=== PATIENT | female | born 1970 | race Caucasian/White ===

== ENCOUNTER 2022-08-29 09:33 | Inpatient (IN) | payer OTHER ==
[~2022-08-29] VITALS: Ht 165.1 cm; Wt 82.3 kg
[2022-08-29 09:52] LABS: BASOPHILS ABSOLUTE AUTO 0.09 K/mm3 (0.00-0.23); BASOPHILS PERCENT AUTO 1 % (0-2); EOSINOPHILS PERCENT AUTO 0 % (0-6); Hemoglobin 9.9 g/dL (11.5-16.0); IMMATURE GRAN ABSOLUTE AUTO 0.03 K/mm3 (0.00-0.10); IMMATURE GRAN PERCENT AUTO 0 % (0-1); LYMPHOCYTES PERCENT AUTO 24 % (21-46); MONOCYTES ABSOLUTE AUTO 0.49 K/mm3 (0.16-1.47); MONOCYTES PERCENT AUTO 5 % (4-13); Mean Corpuscular HGB 30.8 pg (26.0-34.0); Mean Corpuscular Volume 94 fL (80-100); Mean Platelet Volume 9.9 fL (9.1-12.4); NEUTROPHILS ABSOLUTE AUTO 7.15 K/mm3 (1.96-9.15); NEUTROPHILS PERCENT AUTO 70 % (41-73); Platelet Count 224 K/mm3 (150-400); RDW Coefficient Variation 12.8 % (11.7-14.2); RDW Standard Deviation 44.4 fL (35.1-46.3); Red Blood Cell Count 3.21 M/mm3 (3.80-5.20); White Blood Cell Count 10.16 K/mm3 (4.00-11.30)
[2022-08-29 10:13] LABS: Albumin/Globulin Ratio 0.6 (0.8-1.8); Bilirubin, Total 0.2 mg/dL (0.1-1.0); Bun/Creatinine Ratio 12.1 (12.0-20.0); Calcium, Blood 7.9 mg/dL (8.5-10.1); Creatinine, Blood 3.38 mg/dL (0.40-1.00); Globulin, Blood 3.5 g/dL (2.2-4.0); Potassium, Blood 3.6 mmol/L (3.5-5.5); Total Protein, Blood 5.5 g/dL (6.4-8.2)
[2022-08-29 13:01] LABS: Source, Urine Clean Catch
[2022-08-29 13:05] LABS: Appearance, Urine Clear (Clear); Bilirubin, Urine Neg (Neg); Blood, Urine 2+ (Neg); Color, Urine Yellow (P-Yellow); Glucose Qualitative, Urine 1+ (Neg); Ketones, Urine Neg (Neg); Leukocyte Esterase, Urine Neg (Neg); Nitrite, Urine Neg (Neg); Protein, Urine 4+ (Neg); Urobilinogen, Urine NORM (Normal)
[2022-08-29 13:26] LABS: U Opiates Screen DETECTED
[2022-08-29 13:27] LABS: U Amphetamine Screen Not Detected; U Barbituate Screen Not Detected; U Benzodiazapine Screen Not Detected; U Buprenorphine Screen Not Detected; U Cannabinoids Screen Not Detected; U Cocaine Screen Not Detected; U Methadone Screen Not Detected; U Methamphetamine Screen Not Detected; U Oxycodone Screen Not Detected; U Phencyclidine Screen Not Detected; U Propoxyphene Screen Not Detected
[2022-08-29 13:33] LABS: Bacteria Not Seen /hpf; Squamous Epithelial Cells Rare /hpf (Few); White Blood Cells, Urine Not Seen /hpf (0-5)
[2022-08-29] MEDS ORDERED: Norco 10-325 T1 EACH PO (14:20)
--- NOTE | 2022-08-29 18:02 | NUR ---
admit note and shift summary THE PT ARRIVED TO PCU VIA ED STRETCHER APPROX 1400. PT WAS SLID BY 4 STAFF FROM ED STRETCHER TO PCU BED. PT A&OX4. SP02>90% ON 3L NC, BIPAP WHEN NEEDED FOR SOB. PT SOB W/ EXERTION, WORE BIPAP FOR 2 HOURS THIS AFTERNOON. TELEMETRY SHOWS NSR, HR 80'S. BP ELEVATED, MEDICATING PER EMAR. EDEMA NOTED BLE 3+. CASTORENA CATHETER PLACED IN ER, DRAINING CLEAR LIGHT YELLOW URINE TO GRAVITY. NO BM THIS SHIFT. PT STATES MORE THAN "ONE WEEK" SINCE LAST BM. BOWEL TONES NORMAL. PT STATES THIS PROCESS IS NORMAL FOR HER. PT PAINFUL IN LEGS, STATES NEUROPATHY. PT ORIENTED TO ROOM, CALL LIGHT. RESTING IN BED EATING DINNER, CALL LIGHT IN REACH.
--- NOTE | 2022-08-29 20:30 | NUR ---
ASSESSMENT/ASSUMED CARE PT SLEEPING, AWAKENS EASILY TO VERBAL STIMUL. FOLLOW INSTRUCTION AND ANSWERING QUESTIONS APPROP. MOVING SELF AROUND IN BED. C/O BILAT LEG PAIN 01/[address] FOR PAIN MEDS. ELEVATED BP WITH CALL FOR MEDS. LUNGS CLEAR BUT DECREASED ON BIPAP 05/29 FIO2 35%, SPO2 99%. RESP EVEN AND NONLABORED. HEART RATE REGUALR. 3+ LOWER EXT PITTING EDEMA NOTED. BT+ ABD SOFT AND NONTENDER. DENIES N/V. CASTORENA CATH PATENT DRAINING YELLOW URINE. IV TO LEFT AC SALINE LOCKED SITE CLEAR.
[2022-08-29 20:37] LABS: Source, Urine Foley catheter
[2022-08-29 20:43] LABS: Bilirubin, Urine Neg (Neg); Blood, Urine 2+ (Neg); Glucose Qualitative, Urine 1+ (Neg); Ketones, Urine Neg (Neg); Leukocyte Esterase, Urine 1+ (Neg); Nitrite, Urine Neg (Neg); Protein, Urine 3+ (Neg); Urobilinogen, Urine NORM (Normal); pH, Urine 6.5 (5.0-8.0)
[2022-08-29 21:06] LABS: Appearance, Urine Clear (Clear); Color, Urine Pale Yellow (P-Yellow)
[2022-08-29 21:08] LABS: Bacteria Few /hpf; Hyaline Casts 0-2 /lpf (0-2); Red Blood Cells, Urine 0-2 /hpf (0-2); Squamous Epithelial Cells Rare /hpf (Few)
--- NOTE | 2022-08-29 21:22 | NUR ---
PAIN/HTN PT MED WITH HYDROCODONE FOR BILAT LOWER EXT PAIN AND HYDRALAZINE FOR HTN.
[2022-08-30 03:53] LABS: Hematocrit 27.9 % (33.0-51.0); Hemoglobin 9.3 g/dL (11.5-16.0)
[2022-08-30 04:22] LABS: Albumin, Blood 1.9 g/dL (3.4-5.0); Albumin/Globulin Ratio 0.6 (0.8-1.8); Bilirubin, Total 0.3 mg/dL (0.1-1.0); Bun/Creatinine Ratio 12.6 (12.0-20.0); Creatinine, Blood 3.5 mg/dL (0.40-1.00); Globulin, Blood 3.1 g/dL (2.2-4.0); Magnesium, Blood 1.9 mg/dL (1.6-2.4); Potassium, Blood 3.8 mmol/L (3.5-5.5)
--- NOTE | 2022-08-30 05:59 | NUR ---
SHIFT SUMMARY PT RESTING QUIETLY WITH BIPAP ON. SETTINGS /6 FIO2 35%. ORAL CARE Q4HR. PT TAKING BREAKS FROM BIPAP FOR ORAL CARE AND ON 3 LITERS O2 VIA NC. REPORTS IMPROVED BREATHING. PT MED WITH NORCO TWICE FOR C/O LOWER EXT PAIN WITH GOOD RESULTS. PT HAVING HTN MED WITH HYRALALZINE WITH LITTLE IMPROVEMENT. STARTED ON LISINOPRIL. SEE VS. NO ACUTE CHANGE. REPORT TO COMING NURSE
[2022-08-30 11:43] LABS: CHOL/HDL RATIO 6.8; Cholesterol 189 mg/dL (50-200); HDL Cholesterol 28 mg/dL (>39); LDL/HDL RATIO 4.3; Low Density Lipoprotein Chol 120 mg/dL (0-110); Triglycerides 203 mg/dL (30-160); Very Low Density Lipoprot Chol 40 mg/dL (6-32)
--- NOTE | 2022-08-30 18:11 | NUR ---
SHIFT SUMMARY NO ACUTE CHANGES THIS SHIFT. PT A&OX4. SP02>90% ON 4L NC, TITRATED TO 2L. BIPAP WHILE NAPPING, 05/29, 35%. TELEMETRY SHOWS SINUS, HR MOSTLY 80'S. HTN NOTED, MEDICATED PER EMAR. LASIX GIVEN PER EMAR. CASTORENA CATHETER DRAINING TO GRAVITY. UP TO BS TO HAVE ONE BM THIS SHIFT. C/O OF LEG/FOOT PAIN. MEDICATED PER EMAR. DR. NOLAND IN ROOM TO ASSESS AND SPEAK WITH PT THIS AFTERNOON. PT RESTING IN BED WATCHING CARTOONS. CALL LIGHT IN REACH.
--- NOTE | 2022-08-31 05:41 | NUR ---
SHIFT SUMMARY PT AXO. IN SR. ROTATING BETWEEN BIPAP AND NC, PT HAD EPISODE OF DYSPNEA/ANXIETY WHERE HER SATS WERE >95% AND LUNG SOUNDS CLEAR BUT PT COMPLAINING THAT SHE COULDN'T CATCH HER BREATH AND WAS HAVIG TROUBLE BREATHING, POST 0.5MG PO ATIVAN ADMINISRATION PT HAS NOT COMPLAINED OF THIS AGAIN. HAS TOLERATED BIPAP MASK WELL SINCE. CURRENTLY IS SITTING UP IN BED WITH NC @3L WITH SPO2 92%. CASTORENA REMAINS PATENT, DIURESING WELL. CHRONIC PAIN BEING MANAGED PER EMAR, MOSTLY NEUROPATHIC TO FEET/LEGS. OTHERWISE, PT HAS SLEPT OFF AND ON ALONG [facility] DOING CRAFTS IN ROOM AND WATCHING TV. SBA, USES CALL LIGHT APPROPRIATELY.
[2022-08-31 07:17] LABS: Hematocrit 27.5 % (33.0-51.0); Hemoglobin 8.9 g/dL (11.5-16.0); Mean Corpuscular HGB 30.8 pg (26.0-34.0); Mean Corpuscular HGB Conc 32.4 g/dL (31.5-36.5); Mean Corpuscular Volume 95 fL (80-100); Mean Platelet Volume 10.3 fL (9.1-12.4); Platelet Count 219 K/mm3 (150-400); RDW Coefficient Variation 12.9 % (11.7-14.2); RDW Standard Deviation 45.5 fL (35.1-46.3); Red Blood Cell Count 2.89 M/mm3 (3.80-5.20); White Blood Cell Count 10.32 K/mm3 (4.00-11.30)
[2022-08-31 07:37] LABS: Albumin, Blood 2.1 g/dL (3.4-5.0); Albumin/Globulin Ratio 0.6 (0.8-1.8); Bilirubin, Total 0.2 mg/dL (0.1-1.0); Bun/Creatinine Ratio 12.8 (12.0-20.0); Calcium, Blood 7.9 mg/dL (8.5-10.1); Creatinine, Blood 3.67 mg/dL (0.40-1.00); Globulin, Blood 3.4 g/dL (2.2-4.0); Potassium, Blood 3.8 mmol/L (3.5-5.5); Total Protein, Blood 5.5 g/dL (6.4-8.2)
--- NOTE | 2022-08-31 18:00 | NUR ---
SHIFT SUMMARY NO ACUTE CHANGES THIS SHIFT. PT A&OX4. SP02>90% ON 3L NC OR BIPAP 05/29 35%. PT NOTIFIES STAFF WHEN SHE FEELS SOB/WANTS TO GO ON BIPAP. TELEMETRY SHOWS NSR, HR 70'S. HTN NOTED, MEDICATING PER EMAR. CASTORENA CATHETER DRAINING CLEAR YELLOW URINE TO GRAVITY. NO BM THIS SHIFT. UP IN RECLINER PART OF DAY DOING CRAFTS, LEGS ELEVATED. CALL LIGHT IN REACH.
--- NOTE | 2022-08-31 22:44 | NUR ---
ASSUMPTION OF CARE 0 THIS RN ASSUMED CARE OF PT AT 1900. PT ASLEEP IN BED, BUT EASILY AWAKENED. PT APPEARS PALE AND FATIGUE. PT STATES SHE IS "TIRED". VSS. PT ON CPAP, SPO2 95%. REPORTS FEELS "HARD TO BREATH", REPORTS FEELING LIKE SHE IS TAKING "SMALL BREATHS, LIKE HYPERVENTILATING". SPO2 WNL, RR WNL, AND WOB WNL. PT ENCOURAGED TO TAKE SLOW DEEP BREATHING, PT RESPONDED WELL. PT REPORTS 7/10 PAIN IN FEET AND LEGS. WILL ADMINISTER PAIN MEDICATION PER EMAR. PT ENCOURAGED TO REPOSITION AND A WARM BLANKET PROVIDED IN THE MEANTIME. PT A&0 X4, INTERACTING AND RESPONDING APPROPRIATELY. PT DENIES ANY NEEDS OR OTHER CONCERNS AT THIS TIME. CASTORENA CATHETER IN PLACE AND DRAINING PALE, YELLOW URINE TO GRAVITY.
--- NOTE | 2022-09-01 00:39 | NUR ---
UPDATE PT RESTING WELL IN ROOM. 0000 VS STABLE. NO ACUTE CHANGES. PT WANTED BREAK FROM CPAP, CURRENTLY ON 4 L NC SPO2 94 - 96%. PT EXPRESSES NO NEEDS OR CONCERNS AT THIS TIME. CALL LIGHT IN REACH AND BED IN LOWEST POSITION. PT REPORTS PAIN LEVEL HAS DECREASED FOR NOW AND IS TOLERABLE
--- NOTE | 2022-09-01 01:15 | NUR ---
UPDATE PT AWAKE IN ROOM, PT SPO2 DECREASED TO 80% WHILE ON NC. PT A&O, DENIES ANY SX. PT SWITCHED BACK TO CPAP, SPO2 INCREASED AND MAINTAINED FOR A LITTLE, THEN SPO2 DROPPED 84-88%. RT NOTIFIED, RT IN TO SEE PT AND INCREASED BLEED IN TO 7L. SPO2 NOW MAINTAINING 93% - 98%. CALL LIGHT IN REACH.
--- NOTE | 2022-09-01 02:17 | NUR ---
UPDATE; ROUNDING PT ON CPAP, SPO2 MAINTAINING 94 - 98%. PT NOW ASLEEP IN ROOM AND APPEARS COMFORTABLE. CALL LIGHT IN REACH AND BED IN LOWEST POSITION. PT REPOSITIONS INDEPENDENTLY.
[2022-09-01 04:07] LABS: BASOPHILS ABSOLUTE AUTO 0.06 K/mm3 (0.00-0.23); BASOPHILS PERCENT AUTO 1 % (0-2); EOSINOPHILS PERCENT AUTO 0 % (0-6); Hematocrit 27.1 % (33.0-51.0); Hemoglobin 8.7 g/dL (11.5-16.0); IMMATURE GRAN ABSOLUTE AUTO 0.04 K/mm3 (0.00-0.10); IMMATURE GRAN PERCENT AUTO 0 % (0-1); LYMPHOCYTES ABSOLUTE AUTO 2.06 K/mm3 (0.84-5.20); LYMPHOCYTES PERCENT AUTO 21 % (21-46); MONOCYTES PERCENT AUTO 5 % (4-13); Mean Corpuscular HGB 31.3 pg (26.0-34.0); Mean Corpuscular HGB Conc 32.1 g/dL (31.5-36.5); Mean Corpuscular Volume 98 fL (80-100); Mean Platelet Volume 10.7 fL (9.1-12.4); NEUTROPHILS ABSOLUTE AUTO 7.18 K/mm3 (1.96-9.15); NEUTROPHILS PERCENT AUTO 73 % (41-73); Platelet Count 191 K/mm3 (150-400); RDW Standard Deviation 46.3 fL (35.1-46.3); Red Blood Cell Count 2.78 M/mm3 (3.80-5.20); White Blood Cell Count 9.84 K/mm3 (4.00-11.30)
[2022-09-01 04:32] LABS: Albumin/Globulin Ratio 0.6 (0.8-1.8); Bilirubin, Total 0.3 mg/dL (0.1-1.0); Bun/Creatinine Ratio 13.8 (12.0-20.0); Calcium, Blood 8.1 mg/dL (8.5-10.1); Creatinine, Blood 3.85 mg/dL (0.40-1.00); Globulin, Blood 3.3 g/dL (2.2-4.0); Potassium, Blood 4.3 mmol/L (3.5-5.5); Total Protein, Blood 5.3 g/dL (6.4-8.2)
--- NOTE | 2022-09-01 06:31 | NUR ---
SHIFT SUMMARY PT REMAINS A&0 X4. PT RESTED WELL ON AND OFF THROUGHOUT SHIFT. VSS. PT HAD A FEW EPISODES OF SPO2 DECREASING TO 85 - 88%; PT O2 INCREASED. PT RECOVERED WELL. PT ON CPAP MOST OF THE NIGHT WITH MINIMAL BREAKS WHICH SHE WAS SWITCHED TO NC. PT EDUCATED ON DIET SHE CONTINUED TO ASK FOR SNACKS AND HIGH SALT FOODS. PT VERBALIZED UNDERSTANDING BUT AT TIMES STILL ASKING. PT MEDICATED X2 FOR PAIN. NO OTHER CHANGES. CALL LIGHT IN REACH AND BED IN LOWEST POSITION. CASTORENA IN PLACE AND DRAINING TO GRAVITY; GOOD OUTPUT THIS SHIFT.
--- NOTE | 2022-09-01 18:29 | NUR ---
SHIFT SUMMARY PT IS ALERT AND ORIENTED X 4, SPO2 MAINTAINED >92% VIA 4-5L NC, PT REPORTED FEELING SOB. HR AND BP STABLE. PT HAS DENIED FEELINGS OF CHEST PAIN/PRESSURE, SHE HAS DENIED FEELINGS OF NAUSEA. NO COUGH NOTED. PAIN REPORTED IN BILATERAL LOWER EXTREMETIES. LEGS ELEVATED TO ALLEVIATE PAIN, ALSO SEE EMAR FOR PAIN MANAGEMENT. CASTORENA CATHETER IN IN PLACE AND DRAINING TO GRAVITY YELLOW OUTPUT. PT HAS BEEN IN RECLINER CHAIR SINCE BREAKFAST. PT NOW APPEARS TO BE WATCHING TV, CALL LIGHT IN REACH, WILL CONTINUE TO MONITOR UNTIL REPORT GIVEN.
[2022-09-02 04:20] LABS: Hematocrit 27.6 % (33.0-51.0); Hemoglobin 8.8 g/dL (11.5-16.0); Mean Corpuscular HGB 31.3 pg (26.0-34.0); Mean Corpuscular HGB Conc 31.9 g/dL (31.5-36.5); Mean Corpuscular Volume 98 fL (80-100); Platelet Count 207 K/mm3 (150-400); RDW Coefficient Variation 13.2 % (11.7-14.2); Red Blood Cell Count 2.81 M/mm3 (3.80-5.20); White Blood Cell Count 10.54 K/mm3 (4.00-11.30)
[2022-09-02 04:58] LABS: Albumin, Blood 1.9 g/dL (3.4-5.0); Albumin/Globulin Ratio 0.5 (0.8-1.8); Bilirubin, Total 0.3 mg/dL (0.1-1.0); Bun/Creatinine Ratio 15.2 (12.0-20.0); Creatinine, Blood 3.87 mg/dL (0.40-1.00); Globulin, Blood 3.6 g/dL (2.2-4.0); Potassium, Blood 4.3 mmol/L (3.5-5.5); Total Protein, Blood 5.5 g/dL (6.4-8.2)
--- NOTE | 2022-09-02 06:53 | NUR ---
SHIFT SUMMARY PT REMAINS A&O X4. VSS, ALTHOUGH PT HAD ONE ELEVATED SBP ABOVE 170. HYDRALIZINE ADMINISTERED PER EMAR. THROUGHOUT SHIFT PT RESTED ON AND OFF. PT WAS DOING WELL, ALTHOUGH HAD A FEW EPISODES OF SPO2 DECREASING TO 84 - 86% AND NOT RECOVERING WELL. PT ON BIPAP, RT NOTIFIED. RT IN TO ADJUST SETTINGS AND INCREASE O2. PT TOOK A WHILE TO RECOVER, PT BECAME RESTLESS AND AGITATED, AND BEGAN PULLING AT MASK AND "WANTING IT OFF". PT ABLE TO BE REDIRECTED, BUT THEN AGAIN WAS RESTLESS. PT SPO2 DROPPED TO 82%, O2 INCREASED TO 12 - 15; PT SPO2 88 - 89%. RT IN TO ASSESS. PT APPEARS TIRED AND PALE/BENDER IN COLOR BUT WAS RESPONDING AND INTERACTING WITH STAFF. PT STILL ANSWERING QUESTIONS. STATES "FEELS HARD TO BREATH". PT SPO2 INCREASED TO 90 - 92 ON 15 L. PT GIVEN TIME TO RECOVER, HOWEVER TOOK A LONG TIME AND PT NEEDED "TO SIT UP AT EOB". ONCE RECOVERED O2 DECREASED TO 12 L AND PT REMAINS ON THIS; 90 - 93%. BREATHING TX ADMINSTERED D/T COARSE/WHEEZY LS. THIS DID NOT HELP. THIS RN NOTIFIED PROVIDER. ONE TIME DOSE OF 0.5 MG OF ATIVAN TO HELP CALM AGITAION ORDERS AND REPEAT BNP. PT NOW UP IN RECLINER, SEEMS TO BE A LITTLE MORE CALM BUT STILL NOT TOLERATING MASK WELL. EDUCATION PROVIDED BUT VERBALIZED UNDERSTANDING. WILL UPDATE ONCOMING RN. CALL LIGHT IN REACH
--- NOTE | 2022-09-02 17:54 | NUR ---
SHIFT SUMMARY; ASSUMED CARE AT 0700. A/OX3. BIPAP DURING MOST OF SHIFT. BREAKS FOR MEALS AND A FEW HOURS IN AFTERNOON. 10L VIA HIGH FLOW CANNULA WHEN OFF BIPAP. SITS IN RECLINER CHAIR MOST OF SHIFT. ASSISTS MINIMALLY WITH REPOSITIONING. CASTORENA IN PLACE DRAINING CLEAR YELLOW URINE. ORAL CARE TODAY, EATS MEALS WITHOUT DIFFICULTY. 1500ML FLUID RESTRICTION ORDERED TODAY. NO ACUTE CHANGES DURING SHIFT, VSS, WILL CONTINUE TO MONITOR AND TREAT UNTIL CHANGE OF SHIFT.
--- NOTE | 2022-09-03 00:55 | NUR ---
ROUNDING 0000 VSS. BP IMPROVED FROM PREVIOUS; SBP 164. PT UP WATCHING TV IN ROOM. PT ON NC AT 10 L AT THIS TIME PER PT REQUEST TO HAVE A BREAK FROM BIPAP. SPO2 MAINTAINING 91 - 93%. SOB NOTED WITH EXERTION. PT REPORT FEELING ANXIOUS D/T "MASK AND OTHER THINGS". PT ALSO REPORTS 7/10 PAIN IN LEGS AND FEET. MEDICATION FOR PAIN AND ANXIETY ADMINISTERED PER EMAR. PT REPOSITIONED AT THIS TIME. PT REQUESTING SNACKS AND DRINKS. PT EDUCATED ON FLUID RESTRICTION WELL DIET. PT VERBALIZING UNDERSTANDING BUT "DOES NOT LIKE IT". PT COMPLAINS OF DIET AND RESTRICTIONS. EDUCATION PROVIDED ON IMPORTANCE OF BOTH, PT NODS HEAD "YES". SUGAR FREE PUDDING OFFERED AND PT ACCEPTED. CALL LIGHT IN REACH AND BED IN LOWEST POSITION.
--- NOTE | 2022-09-03 04:56 | NUR ---
ROUNDING 0400 PT SLEEPING. VSS; ALTHOUGH SBP STILL ELEVATED AT 171. PT ON 10 L HI FLOW NC, SPO2 90 - 93%. PT REPOSITIONED AT THIS TIME AND BOOSTED IN BED. PT STATES SHE IS OVERALL "FEELING CRUDDY". REPORTS FEELS FATIGUED AND TROUBLE BREATHING. PT DID NOT WANT TO GO BACK ON BIPAP AT THIS TIME. PT REQUESTING FOOD AND A SNACK, BUT DID NOT WANT SUGAR FREE OR LOW SODIUM SNACKS OFFERED. STATES DOES NOT LIKE THE DIET AND IS "HUNGRY". THIS RN REMINDED PT BREAKFAST WOULD BE SOON. PT AGREED AND WENT BACK TO SLEEP. CASTORENA DRAINING TO GRAVITY; 800 MLS OF URINE OUT THIS SHIFT. CALL LIGHT IN REACH AND BED IN LOWEST POSITION
--- NOTE | 2022-09-03 06:14 | NUR ---
SHIFT SUMMARY PT REMAINS A&0 X4. NO ACUTE CHANGES FROM ASSUMPTION OF CARE AND ROUNDING NOTES. PT ON AND OFF BIPAP THROUGHOUT NIGHT, WHEN OFF BIPAP PT ON 10 L VIA HI FLOW NC. SPO2 MAINTAINED 90 - 94% THROUGHOUT SHIFT. PT DOES STATE "FEELS HARD TO BREATH AT TIMES". PT SOUNDS COARSE AND MILD WHEEZES BUT IMPROVED FROM PREVIOUS SHIFT. PT SBP 170'S; HYDRALIZINE PER EMAR ADMINSTERED X2. PT RECEIVED FULL BED BATH LAST NIGHT. PT ENCOURAGED TO PARTICIPATE AND PERFORM SELF-CARE. EDUCATION PROVIDED. PT PARTICIPATED AND DID WELL WITH ENCOURAGEMENT. PT NOW RESTING IN ROOM. CALL LIGHT IN REACH. WILL UPDATE ONCOMING RN
[2022-09-03 06:19] LABS: Hemoglobin 8.8 g/dL (11.5-16.0); Mean Corpuscular HGB 31.2 pg (26.0-34.0); Mean Corpuscular HGB Conc 32.6 g/dL (31.5-36.5); Mean Corpuscular Volume 96 fL (80-100); Mean Platelet Volume 10.7 fL (9.1-12.4); Platelet Count 231 K/mm3 (150-400); RDW Coefficient Variation 13.2 % (11.7-14.2); RDW Standard Deviation 45.9 fL (35.1-46.3); Red Blood Cell Count 2.82 M/mm3 (3.80-5.20); White Blood Cell Count 8.93 K/mm3 (4.00-11.30)
[2022-09-03 06:40] LABS: Albumin, Blood 1.8 g/dL (3.4-5.0); Anion Gap 4 mmol/L (6-16); Blood Urea Nitrogen 69 mg/dL (8-24); Bun/Creatinine Ratio 17.3 (12.0-20.0); CO2, Blood 27 mmol/L (21-32); Calcium, Blood 8.3 mg/dL (8.5-10.1); Chloride, Blood 108 mmol/L (98-108); Creatinine, Blood 3.98 mg/dL (0.40-1.00); Glomerular Filtration Rate 13 (60-); Glucose, Blood 183 mg/dL (70-99); Magnesium, Blood 2.2 mg/dL (1.6-2.4); Phosphorus, Blood 5.4 mg/dL (2.5-4.9); Potassium, Blood 4.3 mmol/L (3.5-5.5); Sodium, Blood 139 mmol/L (136-145)
--- NOTE | 2022-09-03 16:55 | NUR ---
Initial palliative care consult: Dorothy is a 52 year old with a history of DMT2 and HTN. She has not been receiving any local medical care for some time. She is sitting with the HOB elevated during the conversation. She is able to speak in short sentences but she does get SOB easily. Dorothy reports that she is overwhelmed by "all the things wrong." She reports that she has problems with her heart and lungs. She has an incision on her abdomen which appears to have healed (she did not elaborate on the type of surgery she had). She also reports that several of her toes were removed in the past. Spent most of the visit allowing her to talk about her feelings about her illness and asking her what the doctors have told her and what she has learned about caring for herself. She was able to list off that she needs to change her diet (less sugar, less salt) exercise some and limit her fluid intake. We also discussed weighing daily as a way to monitor her fluid and hopefully preventing repeat CHF exacerbations. Gentle DM education also given. She reports that she thinks she might have to go home with oxygen. Provided emotional support as she gets easily overwhelmed and has been receiving a lot of information re: her diagnoses. Spent time talking about what she enjoys. She enjoys beading and showed me the hat she is currently working on. She reports that she lives with her friend, Jayde, and Jayde's . She states that she lived with her dad until he and she was no longer to afford the rent so she moved in with aJyde. She reports that her mother is planning to move here from [place] at the end of September. They plan to buy a house together and help take care of each other. She confirms her limited code status. PC to continue to follow for education, symptom management and emotional support.
--- NOTE | 2022-09-03 17:08 | NUR ---
SHIFT SUMMARY NO ACUTE CHANGES THIS SHIFT. PT A&OX4. IN [employer], RECEIVED VISIT FROM SISTER. SP02>90% ON 8L HHF CURRENTLY. ABLE TO TITRATE FROM 10L AT START OF SHIFT. BIPAP WHILE SLEEPING. TELEMETRY SHOWED NSR, HR MOSTLY 70'S. CASTORENA CATHETER DRAINING YELLOW URINE TO GRAVITY. ADHERED STRICTLY TO FLUID RESTRICTION. NO BM THIS SHIFT. RESTING IN BED, MOSTLY WORKING ON CRAFTS TODAY. CALL LIGHT IN REACH.
--- NOTE | 2022-09-03 22:15 | NUR ---
ASSUMPTION OF CARE THIS RN ASSUMED CARE OF PT AT 1900. REPORT FROM YANELY RENTERIA. PT AWAKE IN ROOM, WATCHING TV. A&0 X4. PT STATES "I AM OK, I AM HERE". PT APPEARS FATIGUED AND PALE. VSS. PT ON 10 L VIA HHF NC, SPO2 94%. PT REPORTS SOB AND FEELS "CONGESTED AND HAS GUNK IN HER BRONCHIAL PASSAGES". STATES SHE IS COUGHING BUT UNABLE TO COUGH UP SPUTUM. LUNG SOUNDS STILL COARSE. PT DENIES CP, PRESSURE, N/V, DIZZINESS, LIGHTHEADNESS OR HEADACHES. EDEMA CONTINUES IN BLE AND BUE. CASTORENA CATHETER IN PLACE AND DRAINING TO GRAVITY. PT DENIES BM FOR "SEVERAL DAYS". STATES AT HOME SHE HAS A BM "MAYBE ONCE OR TWICE A WEEK". DENIES TENDERNESS OR DISCOMFORT IN ABD. PT FOUND WITH A ZIPLOC BAG OF SALT AND PEPPER WELL A ROAST BEEF SANDWICH FROM HER SISTER TODAY. PER DAY SHIFT PT'S SISTER ALSO BROUGHT IN TWO LARGE SIZE MOUNTAIN DEW BOTTLES. THIS RN PROVIDED EDUCATION ON DIET AND RESTRICTIONS WELL REASONING BEHIND DIET. PT STATES "I KNOW BUT THE FOOD IS BLAND AND DISGUSTING". PT VERBALIZED UNDERSTANDING OF DIET AND RESTRICTIONS WELL EDUCATION. CALL LIGHT IN REACH AND BED IN LOWEST POSITION.
--- NOTE | 2022-09-04 02:55 | NUR ---
UPDATE; ROUNDING 0000 PT RESTING ON AND OFF IN ROOM. VSS. PT ON BIPAP, SPO2 92 - 96%. PT REPOSITIONED AT THIS TIME. PT REQUESTING SNACKS, THIS RN EDUCATED ABOUT DIET AND RESTRICTIONS. PT AGREED AND VERBALIZED UNDERSTANDING. PT DOES NOT EXPRESS ANY OTHER NEEDS OR CONCERNS AT THIS TIME. CALL LIGHT IN REACH
--- NOTE | 2022-09-04 04:54 | NUR ---
UPDATE; ROUNDING PT AWAKE IN ROOM WATCHING TV, WITH BIPAP OFF. PT STATES SHE WAS "DREAMING AND DIDNT NEED IT". EDUCATION PROVIDED AND PT VERBALIZED UNDERSTANDING. THIS RN WAS GOING TO PLACE MASK BACK ON PT AND SHE DECLINED STATING "IT IS STICKING TO MY FACE". THIS RN PLACED NC AT 8 L ON PT. 0400 VSS. PT REPORTS 8 - 9/10 PAIN IN HER LEGS AND FEET. PT REQUESTED PAIN MEDICATION. THIS RN ADMINISTERED MEDICATION PER EMAR. PT DENIES ANY OTHER NEEDS AT THIS TIME. PT REPOSITIONED AT THIS TIME. CALL LIGHT IN REACH.
--- NOTE | 2022-09-04 06:23 | NUR ---
SHIFT SUMMARY PT REMAINS A&O X4. NO ACUTE CHANGES THROUGHOUT NIGHT. VSS. PT WORE BIPAP MOST OF THE NIGHT, SPO2 92 - 94%. WHEN ON NC PT ON 8 - 10 L. CURRENTLY ON 8 L AND SPO2 >92%. PT CONTINUES TO COMPLAIN ABOUT "COUGH AND PHELGM". CASTORENA IN PLACE AND DRAINING; 650 OUT THIS SHIFT. CALL LIGHT IN REACH AND BED IN LOW POSITION. WILL UPDATE ONCOMING RN. PT RECEIVED A LOT OF EDUCATION ON DIET AND RESTRICTIONS, SEE OTHER NURSING NOTES. PT VERBALIZES UNDERSTANDING BUT CONTINUES TO ASK FOR FOOD/DRINKS OUTSIDE OF RESTRICTIONS WELL EATING/DRINKING HER OWN FOODS AND DRINKS. THIS RN CONTINUED TO REINFORCE EDUCATION AND IMPORTANCE OF DIET TO PT
[2022-09-04 07:11] LABS: BASOPHILS ABSOLUTE AUTO 0.05 K/mm3 (0.00-0.23); BASOPHILS PERCENT AUTO 1 % (0-2); EOSINOPHILS PERCENT AUTO 0 % (0-6); Hematocrit 26.5 % (33.0-51.0); Hemoglobin 8.4 g/dL (11.5-16.0); IMMATURE GRAN ABSOLUTE AUTO 0.04 K/mm3 (0.00-0.10); IMMATURE GRAN PERCENT AUTO 0 % (0-1); LYMPHOCYTES ABSOLUTE AUTO 1.98 K/mm3 (0.84-5.20); LYMPHOCYTES PERCENT AUTO 21 % (21-46); MONOCYTES ABSOLUTE AUTO 0.71 K/mm3 (0.16-1.47); MONOCYTES PERCENT AUTO 8 % (4-13); Mean Corpuscular HGB 30.9 pg (26.0-34.0); Mean Corpuscular HGB Conc 31.7 g/dL (31.5-36.5); Mean Corpuscular Volume 97 fL (80-100); Mean Platelet Volume 10.6 fL (9.1-12.4); NEUTROPHILS ABSOLUTE AUTO 6.55 K/mm3 (1.96-9.15); NEUTROPHILS PERCENT AUTO 70 % (41-73); Platelet Count 232 K/mm3 (150-400); RDW Coefficient Variation 13.2 % (11.7-14.2); RDW Standard Deviation 46.5 fL (35.1-46.3); Red Blood Cell Count 2.72 M/mm3 (3.80-5.20); White Blood Cell Count 9.33 K/mm3 (4.00-11.30)
[2022-09-04 07:30] LABS: Bun/Creatinine Ratio 17.2 (12.0-20.0); Calcium, Blood 8.1 mg/dL (8.5-10.1); Creatinine, Blood 3.95 mg/dL (0.40-1.00); Potassium, Blood 4.3 mmol/L (3.5-5.5)
[2022-09-05 03:49] LABS: BASOPHILS ABSOLUTE AUTO 0.07 K/mm3 (0.00-0.23); BASOPHILS PERCENT AUTO 1 % (0-2); EOSINOPHILS PERCENT AUTO 0 % (0-6); Hematocrit 24.6 % (33.0-51.0); Hemoglobin 7.8 g/dL (11.5-16.0); IMMATURE GRAN ABSOLUTE AUTO 0.05 K/mm3 (0.00-0.10); IMMATURE GRAN PERCENT AUTO 1 % (0-1); LYMPHOCYTES ABSOLUTE AUTO 1.74 K/mm3 (0.84-5.20); LYMPHOCYTES PERCENT AUTO 16 % (21-46); MONOCYTES ABSOLUTE AUTO 0.72 K/mm3 (0.16-1.47); MONOCYTES PERCENT AUTO 7 % (4-13); Mean Corpuscular HGB 30.8 pg (26.0-34.0); Mean Corpuscular HGB Conc 31.7 g/dL (31.5-36.5); Mean Corpuscular Volume 97 fL (80-100); Mean Platelet Volume 10.6 fL (9.1-12.4); NEUTROPHILS ABSOLUTE AUTO 8.18 K/mm3 (1.96-9.15); NEUTROPHILS PERCENT AUTO 76 % (41-73); Platelet Count 240 K/mm3 (150-400); RDW Coefficient Variation 12.9 % (11.7-14.2); RDW Standard Deviation 45.8 fL (35.1-46.3); Red Blood Cell Count 2.53 M/mm3 (3.80-5.20); White Blood Cell Count 10.76 K/mm3 (4.00-11.30)
[2022-09-05 04:12] LABS: Bun/Creatinine Ratio 16.5 (12.0-20.0); Calcium, Blood 8.3 mg/dL (8.5-10.1); Creatinine, Blood 4.23 mg/dL (0.40-1.00); Potassium, Blood 4.6 mmol/L (3.5-5.5)
--- NOTE | 2022-09-05 08:35 | NUR ---
Met with Dorothy briefly this morning. She reports she is "tired of coughing." She c/o dry, non productive cough and SOB at rest. She reports her edema is decreasing. Reviewed diet restrictions and lifestyle modifications. Visit cut short due to staff needing to get Dorothy [facility] to continue to follow for disease process education and symptom management advanced care planning prn.
--- NOTE | 2022-09-05 18:51 | NUR ---
Shift Summary Pt alert, orineted x3; ambivalent with care. Pt resting in bed for majority of shift, appears to be sleeping intermittently. Pt reports pain to ble, medicated per orders. Pt sob with minimal activity, spo2 >90% on 10l o2 via nc this am, titrated during shift to 5l o2 via nc. Tele sinus 60-70's, bp elevated but stable and trending down this evening. Haro in place and draining. Pt up in chair several times during shift. CBG >350 this am, notified DR, continue with current orders, trending down t/o shift. Other vss. No other acute changes noted. Pt educated this am on dietary choices and lifestyle changes. Pt requesting the mountain dew in room, re-educated pt on blood sugars and sodium content. This afternoon the pt friend devyn in a fast food cheese burger, salt and vinegar chips, salt and pepper shakers and diet mountain dew. Friend was asked to take home the chips, salt and pepper shaker, and the rest of the snack she had brought in, both pt and friend educated on dietary reccomendations and low sodium, ada, and renal diets. This rn left room and returned approx 15 minutes later with patient drink the mountain dew, eating burger and chips, reeducated pt and family, requesting the family to remove items. Comprimised with patient to give 1 small cup of diet mountain dew during shift. Later this rn found salt shaker barried in bed with patient, removed from patient reach.
[2022-09-06 04:31] LABS: BASOPHILS ABSOLUTE AUTO 0.06 K/mm3 (0.00-0.23); BASOPHILS PERCENT AUTO 1 % (0-2); EOSINOPHILS PERCENT AUTO 0 % (0-6); Hematocrit 26.1 % (33.0-51.0); Hemoglobin 8.2 g/dL (11.5-16.0); IMMATURE GRAN ABSOLUTE AUTO 0.04 K/mm3 (0.00-0.10); IMMATURE GRAN PERCENT AUTO 0 % (0-1); LYMPHOCYTES ABSOLUTE AUTO 1.27 K/mm3 (0.84-5.20); LYMPHOCYTES PERCENT AUTO 12 % (21-46); MONOCYTES ABSOLUTE AUTO 0.56 K/mm3 (0.16-1.47); MONOCYTES PERCENT AUTO 5 % (4-13); Mean Corpuscular HGB 30.5 pg (26.0-34.0); Mean Corpuscular HGB Conc 31.4 g/dL (31.5-36.5); Mean Corpuscular Volume 97 fL (80-100); Mean Platelet Volume 10.6 fL (9.1-12.4); NEUTROPHILS ABSOLUTE AUTO 8.52 K/mm3 (1.96-9.15); NEUTROPHILS PERCENT AUTO 81 % (41-73); Platelet Count 247 K/mm3 (150-400); RDW Coefficient Variation 12.8 % (11.7-14.2); RDW Standard Deviation 45.2 fL (35.1-46.3); Red Blood Cell Count 2.69 M/mm3 (3.80-5.20); White Blood Cell Count 10.45 K/mm3 (4.00-11.30)
[2022-09-06 04:50] LABS: Calcium, Blood 8.3 mg/dL (8.5-10.1); Creatinine, Blood 4.21 mg/dL (0.40-1.00); Potassium, Blood 4.9 mmol/L (3.5-5.5)
--- NOTE | 2022-09-06 06:11 | NUR ---
SHIFT SUMMARY ASSUMED CARE OF PATHOLOGY SPECIALIST T 190. PT IS A/OX4 BUT HAD TIMES OF CONFUSION. PT AWOKE AROUND 0400 AND ATTEMPTING TO LEAVE BED WITHOUT ASSISTANCE BECAUSE SHE WAS GOING TO MAKE BREAKFAST. PT EDUCATED ABOUT BLOOD SUGAR AND HOW IT WAS VERY HIGH YESTERDAY AND SHE COULD NOT HAVE ANY SNACKS. PT STATED "SCREW MY BLOOD SUGAR, I WILL OF OTHER THINGS TOO". HEART SOUNDS REGULAR. LUNG SOUNDS HAVE WHEEZE ON L SIDE AND CRACKELS AT BASES. PT WAS ON 5L NC UNTIL ABOUT 0200 WHEN SHE WAS IN A DEEP SLEEP ON NC. PT REFUSED BIPAP T/O THE NIGHT. PT ABLE TO TOLERATE LOWER LITER FLOW WHILE AWAKE. FLOEY DRAINING. PT REMAINED IN BED T/O THE NIGHT. PT HAS GENERALIZED WEAKNESS. PT C/O PAIN IN LEGS, MEDICATED PER EMAR.
--- NOTE | 2022-09-06 09:59 | NUR ---
Spoke with Primary RN María and discussed case. Dr Rosario had converation with Pt and it appears Pt would like to start focusing on quality of life as she does not want to adhere to recommendations. Spoke with Pt's CAGE MAKER MACHINE and discussed case. Pt requires some assistance with transfers, assistance with ambulation for safety, assistance with bathing, dressing and experiences intermittent incontinence. Pt sitting in recliner chair upon arrival. Pt is A&OX4. Pt wearing 4 L O2 at time of visit. Pt denies SOB at this time but states having difficulty with breathing when laying down. Engaged in therapeutic conversation regarding goals of care. Pt does confirm wishes are to focus on comfort and quality. Educated on comfort care and hospice philosophy wit V/U made by Pt. Discussed hospice agencies to choose from. Pt reports wanting the hospice agency that is available the soonest. Received verbal permission from Pt to call Jayde and relay wishes. Pt also requests comfort care and would like to end fluid restriction and no restriction on diet. Called and spoke with Pt's anna Richardhy. Jayde does confirm Pt lives with her and is willing to provide care for Pt. Relayed Pt wishes for hospice services with Jayde reporting understanding of hospice. She reports having a family member on hospice in the past. Requested phone number for Pt's daughter Heidy with Jayde reporting she would prefer to call Heidy stating Heidy would be more receptive of plan coming from Jayde. Offered therapeutic listening and answered questions. Spoke with Dr Rosario and discussed case. Placed comfort care order, comfort care order set, D/C fluid restriction per V/O from Dr Rosario. Dr Rosario will have physician resident review medications to determine which ones to keep and which ones to D/C. Palliative Care will remain available.
--- NOTE | 2022-09-06 10:05 | NUR ---
PALLIATIVE CONTACTED THIS RN ABOUT PT DECISION TO BE PUT ON HOSPICE FOR QUALITY OF LIFE. PALLIATIVE RN DISCUSSED WITH DR TO HAVE MEDS REVIEWED AND FLUID RESTRICTIONS AND DIET RESTRICTIONS BE REMOVED. PT REQUESTING TO REMAIN ON LASIX AND TO KEEP CASTORENA IN PLACE IN ORDER TO "GET SWELLING DOWN."
--- NOTE | 2022-09-06 17:27 | NUR ---
transfer update REPORT GIVEN TO MEDICAL FLOOR RN AT 1705. PT TRANSFERED AT 1727 VIA HOSPITAL BED AND ON 8L NC FOR TRANSFER. PT BELONGINGS GATHERED IN BAGS AND TRANSFERED WITH PT. PT CHART WITH FIELDWORK COORDINATOR'S DURING TRANSFER. PT REMAINED SLEEPING DURING TRANSFER.PT INSULIN TRANSFERED WITH PT.
--- NOTE | 2022-09-06 17:49 | NUR ---
PT TO FLOOR AT 1730. REPORT RECEIVED FROM PCU NURSE. PT IN STABLE CONDITION.
--- NOTE | 2022-09-07 06:16 | NUR ---
DAYANA IS ALERT AND ORIENTED X 4. THROUGHOUT THE NIGHT, SHE HAD A VERY FLAT,SAD AFFECT. SHE AND THIS RN SPOKE ABOUT HOSPICE, HER MANY ONGOING ILLNESSES AND HER SADNESS OVER HER FATHERS RECENT . LUNG SOUNDS ARE COARSE WITH EXP WHEEZES MORE ON RIGHT THAN LEFT. MOST OF THE COARSENESS CLEARS WITH HER STRONG COUGH, BUT COMES RIGHT BACK WITHIN MINUTES. ROXYNOL WAS GIVEN TWICE OVERNIGHT FOR PAIN IN HER CHEST (PLEURETIC) AND LEG AND FOOT PAIN. ALSO, ONE MG ATIVAN WAS GIVEN AROUND 0500 PATIENT WAS GETTING VERY ANXIOUS ABOUT NOT BEING ABLE TO SLEEP AT ALL OVERNIGHT
--- NOTE | 2022-09-07 19:41 | NUR ---
SHIFT SUMMARY- PT IS ALERT AND ORIENTED X3. PT UP TO CHAIR FOR ABOUT 30 MINUTES TODAY. PT RESTING COMFORTABLY IN BED. TREATED PAIN AND ANXIETY PER EMAR. BED IS IN THE LOWEST POSITION WITH ALARM ON. CALL LIGHT IN REACH.
--- NOTE | 2022-09-08 04:27 | NUR ---
DAYANA APPEARED A LITTLE MORE TIRED THIS AFTERNOON. SHE HADN'T EATEN ALL DAY. THEY WHEN SHE AWOKE SHE ATE A LARGE DINNER AND DESSERT. MINIMAL COMPLAINTS OF PAIN, IT WAS WELL AFTER 2400 WHEN SHE FINALLY AGREED SHE COULD USE A PAIN PILL. DAYANA STATED SHE HADN'T HEARD FROM HER MOTHER AGAIN YESTERDAY. SHE IS STILL BANKINGN ON BEING ABLE TO DISCHARGE HOME WITH HOSPICE TODAY
[2022-09-08] MEDS ORDERED: ACET325 PO (08:08)
[2022-09-08] MEDS ORDERED: GABA100 PO (08:09)
[2022-09-08] MEDS ORDERED: ALBU2.5V5 INH (08:09)
[2022-09-08] MEDS ORDERED: METO100 PO (08:10)
[2022-09-08] MEDS ORDERED: NICO21TP TOP (08:10)
[2022-09-08] MEDS ORDERED: HYDHCL25 PO ×2 (08:10)
[2022-09-08] MEDS ORDERED: TORSE20 PO (08:11)
--- NOTE | 2022-09-08 09:01 | NUR ---
DR. MARTINEZ VERBAL ORDER TO HOLD ALL MEDS EXCEPT TOROSIMIDE
--- NOTE | 2022-09-08 13:10 | NUR ---
DISCHARGE PT A&OX4 @ TIME OF DC. IV DCED. TRANSPORT VIA WC VAN DUE TO PT WEAKNESS. MEDS FAXED/HARD COPY PROVIDED TO SISTER IN PACKET. 6L NC. HOME W/ [facility]
== END 2022-09-08 13:22 | disposition hospice, home (50) | DRG 280 ==
LOC: ER 09:33 → ERHOLD 12:06 → PCU 12:06 → MEDS 12:06 → PCU 14:03 → MEDS 09-06 17:27
PROVIDERS: Emergency Medicine; Family Medicine; Nurse Practitioner Acute Care; Student in an Organized Health Care Education/Training Program; ADMIT Internal Medicine
PROC: 5A09357 Assistance with Respiratory Ventilation, Less than 24 Consecutive Hours, Continuous Positive Airway Pressure (ICD-10-PCS; principal; 2022-08-29)
DX: I13.2 Hypertensive heart and chronic kidney disease with heart failure and with stage 5 chronic kidney disease, or end stage renal disease (principal); I50.23 Acute on chronic systolic (congestive) heart failure; I21.A1 Myocardial infarction type 2; J96.01 Acute respiratory failure with hypoxia; N17.9 Acute kidney failure, unspecified; N18.5 Chronic kidney disease, stage 5; Z51.5 Encounter for palliative care; R05.9 Cough, unspecified; E83.39 Other disorders of phosphorus metabolism; R77.8 Other specified abnormalities of plasma proteins; F17.210 Nicotine dependence, cigarettes, uncomplicated; I27.20 Pulmonary hypertension, unspecified; I34.0 Nonrheumatic mitral (valve) insufficiency; D50.9 Iron deficiency anemia, unspecified; E11.22 Type 2 diabetes mellitus with diabetic chronic kidney disease; D63.1 Anemia in chronic kidney disease; J44.9 Chronic obstructive pulmonary disease, unspecified; F41.9 Anxiety disorder, unspecified; Z99.81 Dependence on supplemental oxygen
CPT/HCPCS: 36415; 51702; 51798; 71045; 80048; 80053; 80061; 80069; 81001; 82947; 83036; 83735; 83880; 84100; 84484; 85014; 85018; 85025; 85027; 87086; 93005; 93010; 93306; 94640; 94660; 94664; 94760; 94762; 96374-59; 97161; 97166; 97530; 97535; 99285-25; A9270; J0360; J1644; J1650; J1940; J2060